=== PATIENT | female | born 1955 | race Caucasian/White ===

== ENCOUNTER 2018-04-17 10:03 | Outpatient (CLI) | payer OTHER | END 2018-04-17 10:04 | disposition home or self-care (01) | LOC: BICMAMMO 10:03 | PROVIDERS: ATTEND Nurse Practitioner Family | DX: Z12.31 Encounter for screening mammogram for malignant neoplasm of breast (principal) | CPT/HCPCS: 77063; 77067 ==

== ENCOUNTER 2019-11-12 09:39 | Outpatient (CLI) | payer MEDICARE, OTHER ==
--- NOTE | 2019-11-12 10:24 | BD ---
BONE DENSITOMETRY USING DEXA: HISTORY: Postmenopausal screening for osteoporosis. FINDINGS: Lumbar Spine: BMD (g/cm2) L1 0.799 T-Score: -1.7 Z-Score: -0.1 L2 0.906 T-Score: -1.1 Z-score: 0.7 L3 0.914 T-Score: -1.5 Z-Score: 0.3 L4 0.957 T-Score: -0.9 Z-Score: 1.0 L1-L4 0.900 T-Score: -1.3 Z-Score: 0.5 Femoral Neck: 0.791 T-Score: -0.5 Z-Score: 1.0 Total Femur: 1.015 T-Score: 0.6 Z-Score: 1.9 The 10-year fracture risk for a major osteoporotic fracture is 7.4% and for a hip fracture is 0.4%. Impression: Osteopenia. POS: AH
--- NOTE | 2019-11-12 10:36 | MMO ---
Bilateral MAMMO Bilat Screen [facility]. CLINICAL HISTORY: Patient is 64 years old and is seen for screening. The patient has no family history of breast cancer. The patient has no personal history of cancer. VIEWS: The views performed were: bilateral craniocaudal with tomosynthesis and bilateral mediolateral oblique with tomosynthesis. FILMS COMPARED: The present examination has been compared to prior imaging studies performed at [facility] on 05/04/2012, 05/28/2015 and 08/02/2016, and at [facility] on 09/03/2010. This study has been interpreted with the assistance of computer-aided detection. MAMMOGRAM FINDINGS: There are scattered fibroglandular densities. There are no suspicious masses, suspicious calcifications, or new areas of architectural distortion. IMPRESSION: THERE IS NO MAMMOGRAPHIC EVIDENCE OF MALIGNANCY. A ROUTINE FOLLOW-UP MAMMOGRAM IN 1 YEAR IS RECOMMENDED. THE RESULTS OF THIS EXAM WERE SENT TO THE PATIENT. ACR BI-RADS Category 1 - Negative MAMMOGRAPHY NOTE: 1. A negative mammogram report should not delay a biopsy if a dominant of clinically suspicious mass is present. 2. Approximately 10% to 15% of breast cancers are not detected by mammography. 3. Adenosis and dense breasts may obscure an underlying neoplasm. Reported by: ALEX CRESPO MD Electonically Signed: [id number]
== END 2019-11-12 09:40 | disposition home or self-care (01) ==
LOC: BICMAMMO 09:39
PROVIDERS: ATTEND Family Medicine
DX: Z12.31 Encounter for screening mammogram for malignant neoplasm of breast (principal); Z13.820 Encounter for screening for osteoporosis; M85.88 Other specified disorders of bone density and structure, other site
CPT/HCPCS: 77063; 77067; 77080

== ENCOUNTER 2020-12-31 10:28 | Outpatient (CLI) | payer MEDICARE, OTHER | END 2020-12-31 10:29 | disposition home or self-care (01) | LOC: BICMAMMO 10:28 | PROVIDERS: ATTEND Family Medicine | DX: Z12.31 Encounter for screening mammogram for malignant neoplasm of breast (principal) | CPT/HCPCS: 77063; 77067 ==

== ENCOUNTER 2022-06-16 10:20 | Outpatient (CLI) | payer MEDICARE, OTHER | END 2022-06-16 10:21 | disposition home or self-care (01) | LOC: BICMAMMO 10:20 | PROVIDERS: ATTEND Family Medicine | DX: Z12.31 Encounter for screening mammogram for malignant neoplasm of breast (principal) | CPT/HCPCS: 77063; 77067 ==

== ENCOUNTER 2023-11-23 09:02 | Outpatient (CLI) | payer MEDICARE, OTHER | END 2023-11-23 09:03 | disposition home or self-care (01) | LOC: ULT 09:02 | PROVIDERS: ATTEND Internal Medicine Nephrology | DX: I12.9 Hypertensive chronic kidney disease with stage 1 through stage 4 chronic kidney disease, or unspecified chronic kidney disease (principal); N18.9 Chronic kidney disease, unspecified; N28.1 Cyst of kidney, acquired | CPT/HCPCS: 76770; 93975 ==

== ENCOUNTER 2023-12-26 08:51 | Outpatient (CLI) | payer MEDICARE, OTHER | END 2023-12-26 08:52 | disposition home or self-care (01) | LOC: BICMAMMO 08:51 | PROVIDERS: ATTEND Student in an Organized Health Care Education/Training Program | DX: Z12.31 Encounter for screening mammogram for malignant neoplasm of breast (principal) | CPT/HCPCS: 77063; 77067 ==